=== PATIENT | female | born 1945 | race Caucasian/White ===

== ENCOUNTER → 2020-09-23 | Outpatient (CLI) | payer MEDICARE, BC ==
[~2020-09-23] MED LIST: ALBU8.5H8 INH; ASCO-96 PO; B CO1TAB14 PO; CHOL10003 PO; ESTR42.58 VG; FELO2.5T4 PO; FLUT1BLS8 INH; GLUC-121 PO; LEVO125T5 PO; MAGN100T6 PO; MELO15TA24 PO; METR-90 PO; TURMERIC PO; [UNRECOGNIZED DRUG - OTHER] PO; juice plus PO
[2020-09-23 15:01] LABS: BASOPHILS % (AUTO) 1 % (0-1); EOSINOPHILS % (AUTO) 5 % (1-7); LYMPHOCYTES % (AUTO) 24 % (22-44); MEAN CORPUSCULAR HEMOGLOBIN 32.5 pg (27.0-34.8); MEAN CORPUSCULAR HGB CONC 33.7 g/dL (32.4-35.8); MEAN PLATELET VOLUME 8.1 fL (7.4-10.4); MONOCYTES % (AUTO) 5 % (2-9); NEUTROPHILS % (AUTO) 65 % (42-75); PLATELET COUNT 341 x10^3/uL (130-400); RED BLOOD COUNT 3.93 x10^6/uL (3.82-5.3); RED CELL DISTRIBUTION WIDTH 12.8 % (9.6-15.2)
[2020-09-23 15:02] LABS: MD NO
[2020-09-23 15:09] LABS: CALCIUM 9.3 mg/dL (8.5-10.1); CREATININE 0.74 mg/dL (0.55-1.02)
[2020-09-23 15:19] LABS: ANION GAP 6 mmol/L (5-15); CHLORIDE 110 mmol/L (98-107)
== END | disposition home or self-care (01) ==
LOC: STAR 12:57
PROVIDERS: ATTEND Obstetrics & Gynecology
DX: Z01.812 Encounter for preprocedural laboratory examination (principal); Z20.828 Contact with and (suspected) exposure to other viral communicable diseases; N89.8 Other specified noninflammatory disorders of vagina
CPT/HCPCS: 71046; 80048; 84702; 85025; 87635; 93005

== ENCOUNTER 2020-09-29 12:28 | Day surgery (SDC) | payer MEDICARE, BC ==
[~2020-09-29] VITALS: Ht 149.9 cm; Wt 67.6 kg
[2020-09-29] MEDS ORDERED: CHLORHEXIDINE 15 ML UDC MM ONE (13:00)
[2020-09-29] MEDS ORDERED: LACTATED RINGERS 1,000 ML IV SCH (13:00)
[2020-09-29 13:09] VITALS: BP 126/77
[2020-09-29] MEDS ORDERED: BUPIVACAINE/PF 0.5% ONE (14:12)
[2020-09-29] MEDS ORDERED: BUPIVACAINE/PF 0.25% ONE (14:12)
[2020-09-29] MEDS ORDERED: SILVER NITRATE STICK TP ONE (14:13)
[2020-09-29] MEDS ORDERED: EPINEPHRINE 1 MG/ML, 1ML ONE (14:13)
[2020-09-29] MEDS ORDERED: FENTANYL PF 100 MCG/2ML ONE (14:18)
[2020-09-29] MEDS ORDERED: MIDAZOLAM 1 MG/ML, 2ML ONE (14:19)
[2020-09-29] MEDS ORDERED: ESTROGENS CONJUGATED VAG CRM 0.625MG/1G, 30GM ONE (14:23)
[2020-09-29] MEDS ORDERED: PROPOFOL 10 MG/ML, 20ML ONE (14:30)
[2020-09-29] MEDS ORDERED: ONDANSETRON 2MG/ML, 2ML ONE (14:30)
[2020-09-29] MEDS ORDERED: MEPERIDINE/PF 25MG/0.5ML IVPush PRN (15:00)
[2020-09-29] MEDS ORDERED: PROMETHAZINE 25 MG/ML, 1ML IVPush PRN (15:00)
[2020-09-29] MEDS ORDERED: ACETAMINOPHEN 325 MG TABLET PO PRN (15:00)
[2020-09-29] MEDS ORDERED: OXYcodone 5 MG/5 ML ORAL.SOL UDC PO PRN (15:00)
[2020-09-29] MEDS ORDERED: DIPHENHYDRAMINE 50 MG/ML, 1ML IVPush PRN (15:00)
[2020-09-29] MEDS ORDERED: FENTANYL PF 100 MCG/2ML IV PRN (15:00)
[2020-09-29] MEDS ORDERED: HYDROmorphone 1 MG/ML, 1ML INJ IVPush PRN (15:00)
[2020-09-29] MEDS ORDERED: ONDANSETRON 2MG/ML, 2ML IVPush PRN (15:00)
== END 2020-09-29 18:20 | disposition home or self-care (01) ==
LOC: OUT 12:28
PROVIDERS: ATTEND Obstetrics & Gynecology
DX: N89.5 Stricture and atresia of vagina (principal); G47.33 Obstructive sleep apnea (adult) (pediatric); J45.909 Unspecified asthma, uncomplicated; G43.909 Migraine, unspecified, not intractable, without status migrainosus; Z79.899 Other long term (current) drug therapy; Z87.891 Personal history of nicotine dependence; Z88.5 Allergy status to narcotic agent; Z88.8 Allergy status to other drugs, medicaments and biological substances; Z90.710 Acquired absence of both cervix and uterus; Z98.1 Arthrodesis status; Z98.890 Other specified postprocedural states
CPT/HCPCS: 57400; J2250; J2405; J2704; J3010; J7120; J0171